=== PATIENT | female | born 1960 | race Caucasian/White ===

== ENCOUNTER → 2020-09-25 15:00 | Outpatient (CLI) | payer OTHER, SELFPAY ==
--- NOTE | ~2020-09-25 | MM_ITS ---
EXAMINATION: MM screening [facility] BI w hortencia HISTORY: Screening mammogram TECHNIQUE: Craniocaudal and mediolateral oblique 3-D tomosynthesis images were obtained and synthetic 2-D images were generated. CAD analysis was submitted and interpreted. COMPARISON: No prior mammogram is available for comparison at this institution. BREAST PARENCHYMAL COMPOSITION: There are scattered areas of fibroglandular density. FINDINGS: RIGHT BREAST: There is focal asymmetry in the posterior third of the upper outer quadrant of the [address]. LEFT BREAST: A mass is present in the posterior third of the upper outer quadrant of the breast. IMPRESSION: 1. Bilateral breast findings as described above which may represent the patient's baseline however no comparison is currently available. 2. Comparison with prior mammograms is necessary. BI-RADS Category 0: Incomplete: Needs comparison with prior mammograms. Reviewed, dictated and finalized at location A. IMPRESSION: 1. Bilateral breast findings as described above which may represent the patient 's baseline however no comparison is currently available. 2. Comparison with prior mammograms is necessary. BI-RADS Category 0: Incomplete: Needs comparison with prior mammograms.
== END ==
PROVIDERS: PCP Family Medicine; Visit Provider Family Medicine
DX: Z12.31 Encounter for screening mammogram for malignant neoplasm of breast (principal); R92.8 Other abnormal and inconclusive findings on diagnostic imaging of breast
CPT/HCPCS: 77063; 77067

== ENCOUNTER → 2020-11-16 07:35 | Outpatient (CLI) | payer OTHER, SELFPAY ==
--- NOTE | ~2020-11-16 | MMUS_ITS ---
EXAMINATION: MM diagnostic [facility] BI w hortencia, US breast BI limited HISTORY: Follow-up breast asymmetries/masses TECHNIQUE: Additional 3-D tomosynthesis images of the breasts were performed and synthetic 2-D images were generated. CAD analysis was submitted and interpreted. High resolution limited bilateral breast ultrasound was performed. COMPARISON: Comparison to multiple prior studies sequentially, with oldest reviewed study dated 10/05. BREAST PARENCHYMAL COMPOSITION: The breasts are heterogenously dense, which may obscure small masses. FINDINGS: MAMMOGRAPHIC FINDINGS: There are no suspicious masses, calcifications or architectural distortion in the right breast with s pot compression or mediolateral views. There is a circumscribed 1.8 cm mass in the upper outer quadra nt of the left breast. ULTRASOUND: Limited right breast ultrasound: At 11:00, 2 cm from the nipple, there is a 2 mm cyst. No suspicious masses to suggest malignancy. Limited left breast ultrasound: At 2:00, 4 cm from the nipple, there is a 1.9 cm simple cyst correspo nding to the mass identified on mammography. At 3:00, 4 cm from the nipple, there is a 2 mm cyst. No suspicious masses to suggest malignancy. IMPRESSION: 1. No evidence for malignancy in either breast. Benign cysts. 2. Routine yearly screening mammogram and regular clinical breast examination are recommended. BI-RADS Category 2: Benign finding(s). Reviewed, dictated and finalized at location A. IMPRESSION: 1. No evidence for malignancy in either breast. Benign cysts. 2. Routine yearly screening mammogram and regular clinical breast examination a re recommended. BI-RADS Category 2: Benign finding(s).
== END ==
PROVIDERS: PCP Family Medicine; Visit Provider Nurse Practitioner Family
DX: N63.20 Unspecified lump in the left breast, unspecified quadrant (principal); R92.8 Other abnormal and inconclusive findings on diagnostic imaging of breast
CPT/HCPCS: 76642; 77062; 77066; G0279

== ENCOUNTER 2023-01-16 00:32 | Day surgery (SDC) | payer OTHER, SELFPAY ==
[2023-01-04 13:31] VITALS: BMI 26.1
[2023-01-16 09:30] VITALS: BP 102/63; PULSE 98; RESP 18; TEMP 36.2; O2SAT 100
[2023-01-16] MEDS: LACTATED RINGERS 1,000 ML 150 ML IV CONT (09:40)
--- NOTE | 2023-01-16 09:50 | PM.HPGS ---
History of Present Illness History of Present Illness Consent: Risks, benefits, and alternatives have been discussed and questions answered. Patient agrees to proceed with procedure. Chief complaint: neoplasm screening Narrative: Sandie Steven is a 62 year old female here for screening colonoscopy Review of Systems Constitutional: Constitutional: Denies headache(s) and Denies weakness Eyes: Eyes: Denies blurry vision ENT: Reports Normal hearing present, Denies headache(s) and Denies neck pain Cardiovascular: Cardiovascular: Denies chest pain and Denies dyspnea Respiratory: Respiratory: Denies dyspnea Gastrointestinal: Gastrointestinal: Reports no additional gastrointestinal complaints Genitourinary: Genitourinary: Denies dysuria Musculoskeletal: Musculoskeletal: Denies neck pain Integumentary/Breasts: Skin/Breast: Denies dry skin Neurologic: Reports Normal hearing present, Denies headache(s) and Denies weakness Psychiatric: Psychiatric: Denies anxiety Endocrine: Endocrine: Denies change in body appearance Hematologic/Lymphatic: Hematologic/Lymphatic: Denies easy bleeding Allergic/Immunologic: Allergic/Immunologic: Denies urticaria PMFSH Past Medical History Medical History BMI 25.0-25.9,adult BMI 26.0-26.9,adult Post-menopausal Screen for colon cancer Screening for lipid disorders Screening mammogram, encounter for Family History Family History Grandparent Cerebrovascular accident Diabetes mellitus Father Family history of diabetes mellitus in first degree relative Mother Patient's mother is Social History Social History Smoking packs per day: 1 Smoking cigarettes per day: 20.0 Years smoked: 12 Smoking pack-years: 12.00 Smoking status: Former smoker Tobacco type: cigarettes Alcohol intake: never Substance use: never Substance use type: does not use Living arrangements: alone Spiritual care concerns: No Meds Home Medications and Allergies Home Medications Medication Instructions Recorded Confirmed Type benazepril 20 See Rx Instructions .Route 12/16/22 01/04/23 Rx mg-hydrochlorothiazide 25 mg tablet .COMPLEX #90 tabs Allergies Allergy/AdvReac Type Severity Reaction Status Date / Time hair dye Allergy Mild itching Uncoded 01/16/23 09:29 Vital Signs Vital Signs - 24 hr 01/16/23 09:30 Temperature 97.2 F L Pulse Rate 98 Respiratory Rate 18 Blood Pressure 102/63 Pulse Oximetry 100 Oxygen Delivery Room Air Exam Const: General: comfortable and no acute distress HENMT: Face/Nose/Sinus: Normal nares present Eyes: General: appearance normal, both eyes and all related structures Neck: Neck: no JVD Resp: Auscultation: clear to auscultation bilaterally Cardio: Rate: regular rate Rhythm: regular rhythm GI: Inspection: non-distended GI Palp: Yes Soft to palpation Skin: General skin exam: normal color Neuro: General: gait normal Speech: normal speech Extrem: General: normal to inspection Psych: Mental Status: mental status grossly normal Assessment and Plan Assessment and plan (1) Screen for colon cancer: Code(s): Z12.11 - Encounter for screening for malignant neoplasm of colon Status: Acute Assessment and Plan: colonoscopy
--- NOTE | 2023-01-16 09:53 | WPDANESEPPF ---
Anes - Initial Pre Proc Eval Procedure: Operation Date: 01/16/23 11:00 Proposed Procedures p Screening Colonoscopy - Julio Jade MD Date/Time: 01/16/23 09:53 Surgeon: Julio Jade MD Pre Op Diagnosis: neoplasm screening Patient Data Age: 62 Gender: F Height: 1.63 m Weight: 67.8 kg Last Vital Signs Temp 97.2 F L 01/16/23 09:30 Pulse 98 01/16/23 09:30 Resp 18 01/16/23 09:30 BP 102/63 01/16/23 09:30 Pulse Ox 100 01/16/23 09:30 O2 Del Method Room Air 01/16/23 09:30 Allergies Allergy/AdvReac Type Severity Reaction Status Date / Time hair dye Allergy Mild itching Uncoded 01/16/23 09:29 Home Medications Medication Instructions Recorded Confirmed Type benazepril 20 See Rx Instructions .Route 12/16/22 01/04/23 Rx mg-hydrochlorothiazide 25 mg tablet .COMPLEX #90 tabs Patient hx anesthesia problems: none Family hx anesthesia problems: none Results Review: All pre-operative results and documents have been reviewed as part of the pre-operative evaluation. [facility] Past Medical History Medical History BMI 25.0-25.9,adult BMI 26.0-26.9,adult Post-menopausal Screen for colon cancer Screening for lipid disorders Screening mammogram, encounter for Family History Family History Grandparent Cerebrovascular accident Diabetes mellitus Father Family history of diabetes mellitus in first degree relative Mother Patient's mother is Social History Social History Smoking packs per day: 1 Smoking cigarettes per day: 20.0 Years smoked: 12 Smoking pack-years: 12.00 Smoking status: Former smoker Tobacco type: cigarettes Alcohol intake: never Substance use: never Substance use type: does not use Living arrangements: alone Spiritual care concerns: No Anes - Eval Final PreProcedure Day of Procedure 01/16/23 09:53 Patient weight: normal Heart: regular rate and rhythm Lungs: clear to auscultation Airway: Mallampati scale class II Neurological: alert and oriented Last oral intake: >/= 8 hours ASA classification: II Emergent: no Anesthetic plan: proceed Anesthesia type and monitoring: general GIVS and standard monitoring Results Review: All pre-operative results and documents have been reviewed as part of the pre-operative evaluation. Informed Consent: The patient's anesthetic plan and its attendant risks and benefits were discussed with the patient/family/POA. Questions were solicited and answers provided to the satisfaction of the patient/family/POA.
[2023-01-16 10:17] VITALS: BP 95/57; PULSE 67; RESP 23; O2SAT 98
[2023-01-16 10:27] VITALS: BP 107/68; PULSE 53; RESP 15; O2SAT 100
[2023-01-16 10:37] VITALS: BP 112/66; PULSE 54; RESP 18; O2SAT 100
== END 2023-01-16 10:47 | disposition home or self-care (01) ==
PROVIDERS: PCP Family Medicine; Visit Provider Internal Medicine Gastroenterology
PROC: 0DJD8ZZ Inspection of Lower Intestinal Tract, Via Natural or Artificial Opening Endoscopic (ICD-10-PCS; CPT 45378; principal; 2023-01-16 11:00)
DX: Z12.11 Encounter for screening for malignant neoplasm of colon (principal); K64.8 Other hemorrhoids; D12.4 Benign neoplasm of descending colon; Z87.891 Personal history of nicotine dependence; Z82.3 Family history of stroke
CPT/HCPCS: 45385; 88305; J2704; J7120

== ENCOUNTER → 2023-03-10 14:51 | Outpatient (CLI) | payer OTHER, SELFPAY ==
--- NOTE | ~2023-03-10 | MM_ITS ---
EXAMINATION: MM screening [facility] BI w hortencia HISTORY: Screening TECHNIQUE: Craniocaudal and mediolateral oblique 3-D tomosynthesis images were obtained and synthetic 2-D images were generated. CAD analysis was submitted and interpreted. COMPARISON: Comparison to multiple prior studies sequentially, with oldest reviewed study dated 10/05. BREAST PARENCHYMAL COMPOSITION: Breast composed of scattered areas of fibroglandular density FINDINGS: Significant enlargement of circumscribed mass in the upper outer quadrant of the left breas t posteriorly. There is developing asymmetry in the upper outer quadrant of the right breast. IMPRESSION: 1. Developing right breast asymmetry in the upper outer quadrant posteriorly. Enlarging mass in the u pper outer quadrant of the left breast. 2. Additional mammographic views and possible breast ultrasound are recommended. BI-RADS Category 0: Incomplete: Needs additional imaging evaluation. Reviewed, dictated and finalized at location A. RY DRUM TANNER IMPRESSION: 1. Developing right breast asymmetry in the upper outer quadrant posteriorly. E nlarging mass in the upper outer quadrant of the left breast. 2. Additional mammographic views and possible breast ultrasound are recommended . BI-RADS Category 0: Incomplete: Needs additional imaging evaluation.
== END ==
PROVIDERS: PCP Family Medicine; Visit Provider Nurse Practitioner Family
DX: Z12.31 Encounter for screening mammogram for malignant neoplasm of breast (principal); R92.8 Other abnormal and inconclusive findings on diagnostic imaging of breast
CPT/HCPCS: 77063; 77067

== ENCOUNTER 2023-03-21 10:06 | Outpatient (CLI) | payer OTHER, SELFPAY ==
--- NOTE | ~2023-03-21 | MMUS_ITS ---
EXAMINATION: MM diagnostic [facility] BI w hortencia, US breast LT limited HISTORY: Left breast mass and right breast focal asymmetry on screening mammogram TECHNIQUE: Additional 3-D tomosynthesis images of the breasts were performed and synthetic 2-D images were generated. CAD analysis was submitted and interpreted. High resolution limited left breast ultr asound was performed. COMPARISON: 03/10/2023, 11/16/2020, 09/25/2020 FINDINGS: MAMMOGRAPHIC FINDINGS: Right breast: There is a return to baseline fibroglandular appearance with spot compression of the ri ght breast in the area questioned on screening mammogram. Left breast: There is a 3.5 x 2.3 cm oval, circumscribed, equal density mass in the posterior third o f the upper outer quadrant of the breast at the 2:00 location, 7 cm from the nipple. No suspicious ca lcification or architectural distortion are identified. ULTRASOUND: There is a 3.5 x 1.2 cm simple cyst of the left breast at the 2:00 location, 7 cm from the nipple cor responding to the mammographic finding in question. No suspicious cystic or solid mass is identified. IMPRESSION: 1. No mammographic or sonographic evidence of malignancy. 2. Recommend routine screening mammography in one year. BI-RADS Category 2: Benign finding(s). Reviewed, dictated and finalized at location A. TROGRAPHIC ANALYST IMPRESSION: 1. No mammographic or sonographic evidence of malignancy. 2. Recommend routine screening mammography in one year. BI-RADS Category 2: Benign finding(s).
== END 2023-03-21 10:07 | disposition home or self-care (01) ==
LOC: CHSIMG 10:07
PROVIDERS: PCP Family Medicine; Visit Provider Nurse Practitioner Family
DX: N63.20 Unspecified lump in the left breast, unspecified quadrant (principal)
CPT/HCPCS: 76642; 77062; 77066; G0279

== ENCOUNTER 2023-06-02 15:14 | Outpatient (NON) | payer OTHER, SELFPAY | END 2023-06-02 15:15 | disposition home or self-care (01) | PROVIDERS: PCP Family Medicine; Visit Provider Surgery | DX: N60.82 Other benign mammary dysplasias of left breast (principal); N60.02 Solitary cyst of left breast | CPT/HCPCS: 88108; 88305 ==

== ENCOUNTER 2024-07-30 08:10 | Outpatient (CLI) | payer OTHER, SELFPAY ==
--- NOTE | ~2024-07-30 | MM_ITS ---
EXAMINATION: MM screening [facility] BI w hortencia HISTORY: Screening mammogram TECHNIQUE: Craniocaudal and mediolateral oblique 3-D tomosynthesis images were obtained and synthetic 2-D images were generated. CAD analysis was submitted and interpreted. COMPARISON: 03/10/2023, 09/25/2020 BREAST PARENCHYMAL COMPOSITION:Not Dense. There are scattered areas of fibroglandular density. FINDINGS: Previously noted mass at the upper outer left breast is resolved. There is a new 9 mm ovoid mass, also the posterior upper, outer left breast. No mass lesion or distortion seen in the right br east. No suspicious calcifications. IMPRESSION: 9 mm ovoid mass at the upper, outer left breast. Spot compression views and ultrasound are recommende d to further evaluate. BI-RADS Category 0: Incomplete: Needs additional imaging evaluation. Reviewed, dictated and finalized at [facility]. IMPRESSION: 9 mm ovoid mass at the upper, outer left breast. Spot compression views and ult rasound are recommended to further evaluate. BI-RADS Category 0: Incomplete: Needs additional imaging evaluation.
--- OUTSIDE RECORDS SUMMARY | 2024-07-30 08:15 | XMS_ITS | Clinical Summary ---
Author Organization [facility] [employer] Address [address] [place] [address] Care Team Providers Care Rn Employee Health Name Role Phone Claus Garza MD Primary Care Provider [phone] Source Comments [facility] [employer],non-owned Affiliates and Associated Physician Practices is amultiple site organization consisting of ambulatory clinics and hospital sitesin [place], [place], [place] and [place]. This disclosure is being madepursuant to the Care Everywhere program and may not contain all information available regarding this patient. Last updated [employer] Allergies No known active allergies Medications * Be aware that medications may not be up to date on this document. Alwaysverify current medications with the patient. BENAZEPRIL HCL PO Ac tive Levomilnacipran HCl (FETZIMA PO) Act olga Social History Tobacco Use Types Packs/Day Years Used Date Smoking Tobacco: Former Smokeless Tobacco: Never Comments:Quit 27 years ago Comments No Sex and Gender Information Value Date Recorded Sex Assigned at Not on file Legal Sex Female 5:48 PM CRATE BUILDER Gender Identity Not on file Sexual Orientation Not on file Last Filed Vital Signs Vital Sign Reading Time Taken Comments Blood Pressure 110/80 05/23/2017 6:01 PM CRATE BUILDER Pulse 85 05/23/2017 6:01 PM CRATE BUILDER Temperature 36.7 C (98 F) 05/23/2017 6:01 PM CRATE BUILDER Respiratory Rate 14 05/23/2017 6:01 PM CRATE BUILDER Oxygen Saturation 97% 05/23/2017 6:01 PM CRATE BUILDER Inhaled Oxygen Concentration - - Weight 63.5 kg (140 lb) 05/23/2017 6:01 PM CRATE BUILDER Height 162.6 cm (5' 4 ) 05/23/2017 6:01 PM CRATE BUILDER Body Mass Index 24.03 05/23/2017 6:01 PM CRATE BUILDER Plan of Treatment Health Maintenance Due Date Last Done Comments COLOGUARD (AGES 45-75) - COL ON CA SCREENING 1959 COLON MONITORING 1959 COLONOSCOPY - COLON CA SCREENING 1959 CT COLONOGRAPHY - COLON CA SCREENING 1959 Colorectal Cancer Screening 1959 FIT - COLON CA SCREENING 1959 FLEX SIG - COLON CA SCREENING 1959 LIPID TESTING 1959 MAMMOGRAM 1959 PAP SMEAR 1959 HIV SCREENING 11/24/1974 HEPATITIS C SCREENING 11/20/1977 DTAP/TDAP/TD VACCINES (1 - Tdap) 11/24/1978 PNEUMOCOCCAL VACCINE 50+ (1 of 1 - PCV) 11/24/2009 ZOSTER VACCINE (1 of 2) 11/24/2009 COVID-19 VACCINE (1 - 2023-2 5 season) 2023 DEPRESSION SCREENING 03/20/2024 INFLUENZA VACCINE (Season Ended) 2024 Respiratory Syncytial Virus (RSV) Vaccine Pt: or over 60 yrs (1 - 1-dose 75+ series) 11/24/2034 HEPATITIS B VACCINE Aged Out No longe r eligible based on patient's age to complete this topic HIB VACCINE Aged Out No longer eligi ble based on patient's age to complete this topic HPV VACCINE Aged Out No longer eligi ble based on patient's age to complete this topic MENINGOCOCCAL (Group B) VACC INE SHARED DECISION-MAKING Aged Out No longer eligibl e based on patient's age to complete this topic MENINGOCOCCAL GROUPS A/C/Y/W VACCINE Aged Out No longer eligible b ased on patient's age to complete this topic [place] [facility] [place] [facility] [place]: [address] [place] [address] Care Teams Rn Employee Health Relationship Specialty Start Date End Date Claus Garza MD [address] [place] [address] PCP - General Family Medicine 05/23/17
--- OUTSIDE RECORDS SUMMARY | 2024-07-30 08:15 | XMS_ITS | CONTINUITY OF CARE DOCUMENT ---
Author Name annette bryant Address Unknown Organization [facility] Address [address] [place] [address] Phone [phone] Care Team Providers Care Maintainer [employer] Name Role Phone Abelardo MOJICA, Arnol Unavailable SYLVIA ARELLANO MD Unavailable INSURANCE PROVIDERS Payer name Policy type / Coverage type [place] red alliance party ID [facility] [id number] Other [id number]
--- OUTSIDE RECORDS SUMMARY | 2024-07-30 08:15 | XMS_ITS | Encounter Summary ---
Author Organization [facility] Address [address] [place] [address] Care Team Providers Care Senior Engineering Specialist Name Role Phone Claus Garza MD Primary Care Provider [phone] Encounter Details Date Type Department Care Team (Late st Contact Info) Description 12/14/2022 Lab Requisition [facility] - DermPath Lab [address] [place] [id number] Suzan Young APRN-GUM MACHINE OPERATOR [address] [place] [address] Social History Tobacco Use Types Packs/Day Years Used Date Smoking Tobacco: Former Smokeless Tobacco: Never Comments:Quit 27 years ago Comments No Sex and Gender Information Value Date Recorded Sex Assigned at Not on file Legal Sex Female 5:48 PM PUBLIC HEALTH ADMINISTRATOR Gender Identity Not on file Sexual Orientation Not on file documented as of this encounter Plan of Treatment Not on file documented as of this encounter Procedures Procedure Name Priority Date/Time Associated Diagnosis Comments DERMATOPATHOLOGY Routine 12/14/2022 3:22 PM CDT documented in this encounter Results * DERMATOPATHOLOGY (12/14/2022 3:22 PM CDT) Case Report Dermatopathology Report Case: [id number] Authorizing Provider: Suzan Young, Collected: 12/14/2022 03:22 PM VENEER GRADER-GUM MACHINE OPERATOR Ordering Location: [facility] DermPath Lab Received: 12/15/2022 02:10 PM Pathologist: Nayeli Hunt MD Specimens: A) - Skin, right lower leg medial B) - Skin, right lower leg lateral 3 2:11 PM T DERMATOPATHOLOGY LABORATORY Final Diagnosis Specimen A. SKIN, right lower leg medial: BASAL CELL CARCINOMA, SUPERFICIAL MULTIFOCAL (C44.712) Specimen B. SKIN, right lower leg lateral: BASAL CELL CARCINOMA, SUPERFICIAL MULTIFOCAL (C44.712) 3 2:11 PM T DERMATOPATHOLOGY LABORATORY Clinical History A-B: R/O BCC, Non-Healing 3 2:11 PM T DERMATOPATHOLOGY LABORATORY Gross Description Specimen A: Received is one formalin filled container labeled with the patient's name and designated right lower leg medial. The specimen consists of a shave biopsy measuring 6x7x1 mm. Jar 0. Specimen B: Received is one formalin filled container labeled with the patient's name and designated right lower leg lateral. The specimen consists of a shave biopsy measuring 8x5x1 mm. Jar 0. 3 2:11 PM [facility] DERMATOPATHOLOGY LABORATORY Microscopic Description Specimen A. SKIN, right lower leg medial: Attached to the undersurface of the epidermis, there are small aggregates of basaloid cells with a high nuclear to cytoplasmic ratio and peripheral palisading. Specimen B. SKIN, right lower leg lateral: Attached to the undersurface of the epidermis, there are small aggregates of basaloid cells with a high nuclear to cytoplasmic ratio and peripheral palisading. 3 2:11 PM T DERMATOPATHOLOGY LABORATORY Disclaimer An external and internal positive and negative controls are appropriate for the histochemical, immunohistochemical and immunofluorescence stain(s) in this case (if any), except where stated explicitly. The performance characteristics of the stain(s) cited in this report were developed and its performance characteristic determined by the Dermatopathology Laboratory at [facility], directed by Dr. Hugh Hunt. These tests need not be, and therefore are not, approved by the [place] Food and Drug Administration. The tests are used for clinical purposes. Billing Codes Specimen Charges Stain Charges 04681 44211 1 1 3 2:11 PM CDT DERMATOPATHOLOGY LABORATORY Embedded Images 3 2:11 PM T DERMATOPATHOLOGY LABORATORY Pathology/Cytology TISSUE SPECIMEN FROM SKIN / Unknown 12/14/2022 3:22 PM CDT 12/15/2022 2:10 PM CDT Miscellaneous samples (specimen) TISSUE SPECIMEN FROM SKIN / Unknown 12/14/2022 3:22 PM CDT 12/15/2022 2:10 PM CDT Suzan Young VENEER GRADER-GUM MACHINE OPERATOR LAB - PATHOLOGY/CY TOLOGY ORDERABLES Final Result Performing Organization Address City/State/[facility] Co de Phone Number DERMATOPATHOLOGY LABORATORY [facility] - Department of Dermatology [facility] [address] [place] [address], [address] [phone] documented in this encounter Visit Diagnoses Not on filedocumented in this encounter Care Teams Senior Engineering Specialist Relationship Specialty Start Date End Date Claus Garza MD [address] [place] [address] PCP - General Family Medicine 05/23/17 documented as of this encounter
== END 2024-07-30 08:11 | disposition home or self-care (01) ==
LOC: CHSIMG 08:11
PROVIDERS: PCP Family Medicine; Visit Provider Family Medicine
DX: Z12.31 Encounter for screening mammogram for malignant neoplasm of breast (principal); R92.8 Other abnormal and inconclusive findings on diagnostic imaging of breast
CPT/HCPCS: 77063; 77067

== ENCOUNTER 2024-08-20 08:46 | Outpatient (CLI) | payer OTHER, SELFPAY ==
--- NOTE | ~2024-08-20 | MMUS_ITS ---
MM DIAGNOSTIC NITESH LT W ROCIO AND US BREAST LT LIMITED INDICATION: 63-year old female; BI-RADS 0, evaluate ovoid mass upper outer left breast. COMPARISON: 07/30/2024 and 03/10/2023 TECHNIQUE: Digital breast tomosynthesis True lateral, spot compression CC view of LEFT breasts were o btained with computer-aided detection to assist in interpretation of the study. FINDINGS: There are scattered areas of fibroglandular density. The ovoid mass of concern in the upper outer posterior left breast partially persists on spot renaldo thierry views as a circumscribed mass. LEFT BREAST ULTRASOUND FINDINGS: Targeted evaluation of the upper outer left breast performed did not show any suspicious solid or cys tic mass that correlates to the mammographic finding. However, a 0.4 cm simple cyst was seen at 1:00, 5 cm from the nipple which is smaller in size and superficial in location and therefore not a correl ate to the area of concern. IMPRESSION: Incomplete evaluation of left breast mass at upper outer, posterior depth with no definite sonographi c correlate. RECOMMENDATION: I would advise the patient to return and have a radiologist scan the patient to provided correlation to the mammographic finding. BI-RADS Category 0: Incomplete: Needs additional imaging evaluation. Reviewed, dictated and finalized at location B. IMPRESSION: Incomplete evaluation of left breast mass at upper outer, posterior depth with no definite sonographic correlate. RECOMMENDATION: I would advise the patient to return and have a radiologist scan the patient to provided correlation to the mammographic finding. BI-RADS Category 0: Incomplete: Needs additional imaging evaluation.
--- OUTSIDE RECORDS SUMMARY | 2024-08-20 08:56 | XMS_ITS | CONTINUITY OF CARE DOCUMENT ---
Author Name annette bryant Address Unknown Organization [facility] Address [address] [place] [address] Phone [phone] Care Team Providers Care Logging Worker Name Role Phone Abelardo MOJICA, Arnol Unavailable SYLVIA ARELLANO MD Unavailable INSURANCE PROVIDERS Payer name Policy type / Coverage type [place] red [employer] party ID [facility] [id number] Other [id number]
--- OUTSIDE RECORDS SUMMARY | 2024-08-20 08:56 | XMS_ITS | Encounter Summary ---
Author Organization [facility] Address [address] [place] [address] Care Team Providers Care Machine Folder Name Role Phone Claus Garza MD Primary Care Provider [phone] Encounter Details Date Type Department Care Team (Late st Contact Info) Description 12/14/2022 Lab Requisition [facility] - DermPath Lab [address] [place] [id number] Suzan Young APRN-BLAST FURNACE CHECKER [address] [place] [address] Social History Tobacco Use Types Packs/Day Years Used Date Smoking Tobacco: Former Smokeless Tobacco: Never Comments:Quit 27 years ago Comments No Sex and Gender Information Value Date Recorded Sex Assigned at Not on file Legal Sex Female 5:48 PM ART EDITOR Gender Identity Not on file Sexual Orientation Not on file documented as of this encounter Plan of Treatment Not on file documented as of this encounter Procedures Procedure Name Priority Date/Time Associated Diagnosis Comments DERMATOPATHOLOGY Routine 12/14/2022 3:22 PM CDT documented in this encounter Results * DERMATOPATHOLOGY (12/14/2022 3:22 PM CDT) Case Report Dermatopathology Report Case: [id number] Authorizing Provider: Suzan Young, Collected: 12/14/2022 03:22 PM ELECTRIC ARC FURNACE OPERATOR-BLAST FURNACE CHECKER Ordering Location: [facility] DermPath Lab Received: 12/15/2022 02:10 PM Pathologist: [...] (C44.712) 3 2:11 PM T DERMATOPATHOLOGY LABORATORY at 1411 CDT Clinical History A-B: R/O BCC, Non-Healing 3 2:11 PM CDT DERMATOPATHOLOGY LABORATORY Gross Description Specimen A: Received [...] 8x5x1 mm. Jar 0. 3 2:11 PM T DERMATOPATHOLOGY LABORATORY Microscopic Description Specimen A. SKIN, [...] ratio and peripheral palisading. 3 2:11 PM CDT DERMATOPATHOLOGY LABORATORY Disclaimer An external and internal positive and negative controls are appropriate for the histochemical, immunohistochemical and immunofluorescence stain(s) in this case (if any), except where stated explicitly. The performance characteristics of the stain(s) cited in this report were developed and its performance characteristic determined by the Dermatopathology Laboratory at [facility], directed by Dr. Hugh Hunt. These tests need not be, and therefore are not, approved by the [place] Food and Drug Administration. The tests are used for clinical purposes. Billing Codes Specimen Charges Stain Charges 96238 85346 1 1 3 2:11 PM CDT DERMATOPATHOLOGY LABORATORY Embedded Images 3 2:11 PM CDT DERMATOPATHOLOGY LABORATORY Pathology/Cytology TISSUE SPECIMEN FROM SKIN / Unknown 12/14/2022 3:22 PM CDT 12/15/2022 2:10 PM CDT Miscellaneous samples (specimen) TISSUE SPECIMEN FROM SKIN / Unknown 12/14/2022 3:22 PM CDT 12/15/2022 2:10 PM CDT Suzan Young ELECTRIC ARC FURNACE OPERATOR-BLAST FURNACE CHECKER LAB - PATHOLOGY/CY TOLOGY ORDERABLES Final Result Performing Organization Address City/State/[facility] Co de Phone Number DERMATOPATHOLOGY LABORATORY [facility] - Department of Dermatology [facility] [address] [place] [address], [address] [phone] documented in this encounter Visit Diagnoses Not on filedocumented in this encounter Care Teams Machine Folder Relationship Specialty Start Date End Date Claus Garza MD [address] [place] [address] PCP - General Family Medicine 05/23/17 documented as of this encounter
--- OUTSIDE RECORDS SUMMARY | 2024-08-20 08:56 | XMS_ITS | Clinical Summary ---
Author Organization [facility] [employer] Address [address] [place] [address] Care Team Providers Care Right Of Way Man Name Role Phone Claus Garza MD Primary Care Provider [phone] Source Comments [facility] [employer],non-owned Affiliates and Associated Physician Practices is amultiple site organization consisting of ambulatory clinics and hospital sitesin [place], [place], [place] and [place]. This disclosure is being madepursuant to the Care Everywhere program and may not contain all information available regarding this patient. Last updated [email or web address] Allergies No known active allergies Medications * [...] on file Legal Sex Female 5:48 PM PULPWOOD CUTTER Gender Identity Not on file Sexual Orientation Not on file Last Filed Vital Signs Vital Sign Reading Time Taken Comments Blood Pressure 110/80 05/23/2017 6:01 PM PULPWOOD CUTTER Pulse 85 05/23/2017 6:01 PM PULPWOOD CUTTER Temperature 36.7 C (98 F) 05/23/2017 6:01 PM PULPWOOD CUTTER Respiratory Rate 14 05/23/2017 6:01 PM PULPWOOD CUTTER Oxygen Saturation 97% 05/23/2017 6:01 PM PULPWOOD CUTTER Inhaled Oxygen Concentration - - Weight 63.5 kg (140 lb) 05/23/2017 6:01 PM PULPWOOD CUTTER Height 162.6 cm (5' 4) 05/23/2017 6:01 PM PULPWOOD CUTTER Body Mass Index 24.03 05/23/2017 6:01 PM PULPWOOD CUTTER Plan of Treatment Health Maintenance Due Date [...] patient's age to complete this topic Insurance [employer] Care Teams Right Of Way Man Relationship Specialty Start Date End Date Claus Garza MD [address] [place] [address] PCP - General Family Medicine 05/23/17
== END 2024-08-20 08:47 | disposition home or self-care (01) ==
LOC: CHSIMG 08:47
PROVIDERS: PCP Family Medicine; Visit Provider Family Medicine
DX: R92.8 Other abnormal and inconclusive findings on diagnostic imaging of breast (principal)
CPT/HCPCS: 76642; 77061; 77065; G0279